=== PATIENT | male | born 1995 | race Caucasian/White ===

== ENCOUNTER 2017-03-09 15:59 | Emergency (ER) | payer SELFPAY ==
[~2017-03-09] VITALS: Ht 175.3 cm; Wt 68.0 kg
[2017-03-09 17:00] VITALS: BP 122/73
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
== END 2017-03-09 18:25 | disposition home or self-care (01) ==
LOC: ER 15:59
DX: F19.10 Other psychoactive substance abuse, uncomplicated (principal); Z59.0 Homelessness
CPT/HCPCS: 99283